=== PATIENT | male | born 1960 | race Asian ===

== ENCOUNTER 2017-02-05 10:01 | Emergency (ER) | payer MEDICAID, OTHER ==
[~2017-02-05] VITALS: Ht 167.6 cm; Wt 63.6 kg
[~2017-02-05 10:01] MED LIST: AMLO-511 PO; TELM1TAB6 PO
[2017-02-05 11:10] LABS: BASOPHILS % (AUTO) 0.5 % (0.0-2.0); EOSINOPHILS % (AUTO) 0.2 % (1.0-6.0); HEMATOCRIT 25.8 % (41-53); HEMOGLOBIN 8.8 g/dL (13.5-17.5); LYMPHOCYTES # (AUTO) 1.2 K/uL (1.0-4.8); LYMPHOCYTES % (AUTO) 12.1 % (22.0-44.0); MEAN CORPUSCULAR HEMOGLOBIN 33.2 pg (26.0-34.0); MEAN CORPUSCULAR HGB CONC 34.1 G/dL (31.0-37.0); MEAN CORPUSCULAR VOLUME 97 fL (80-100); MONOCYTES # (AUTO) 0.4 K/uL (0.1-1.0); MONOCYTES % (AUTO) 4.5 % (2.0-9.0); NEUTROPHILS % (AUTO) 82.7 % (40.0-70.0); PLATELET COUNT (AUTO) 220 K/uL (150-450); RED BLOOD CELL COUNT(AUTO) 2.65 MIL/uL (4.50-5.90); RED CELL DISTRIBUTION WIDTH 13.5 % (11.5-14.5); WHITE BLOOD COUNT (AUTO) 9.7 K/uL (4.5-11.0)
[2017-02-05 11:18] LABS: CALCIUM, TOTAL 8.6 mg/dL (8.8-10.5); CREATININE 13.97 mg/dL (0.60-1.30); POTASSIUM 4.2 mmol/L (3.5-5.1)
[2017-02-05 11:25] LABS: ALBUMIN 4.1 g/dL (3.4-5.0); BILIRUBIN,TOTAL 0.5 mg/dL (0.1-1.0); TOTAL PROTEIN, SERUM 7.8 g/dL (6.4-8.2)
[2017-02-05 12:26] LABS: GLUCOSE, URINE (UA) 100 mg/dL (NEGATIVE); KETONES,URINE NEGATIVE (NEGATIVE); LEUKOCYTE ESTERASE ,URINE NEGATIVE (NEGATIVE); OCCULT BLOOD,URINE TRACE (NEGATIVE); PROTEIN,URINE SEE CONFIRM (NEGATIVE)
[2017-02-05 12:27] LABS: ADD UA MICROSCOPIC YES
[2017-02-05 12:35] LABS: APPEARANCE,URINE SLIGHTLY CLOUDY (CLEAR)
[2017-02-05 12:36] LABS: SULFOSALICYLIC ACID,URINE 3+ (Negative)
[2017-02-05 12:38] LABS: RBC,URINE 0-2 /HPF (0-2); WBC,URINE 0-2 /HPF (0-5)
[2017-02-05 12:40] LABS: AMORPHOUS SEDIMENT,UR Moderate /LPF (None Seen); TRANSITIONAL EPI CELLS,URINE Rare /LPF (None Seen)
[2017-02-05 13:41] VITALS: BP 162/76
== END 2017-02-05 14:09 | disposition home or self-care (01) ==
LOC: EMS 10:04
DX: K56.41 Fecal impaction (principal); I12.9 Hypertensive chronic kidney disease with stage 1 through stage 4 chronic kidney disease, or unspecified chronic kidney disease; N18.9 Chronic kidney disease, unspecified; K59.00 Constipation, unspecified; D64.9 Anemia, unspecified; K85.90 Acute pancreatitis without necrosis or infection, unspecified; I25.10 Atherosclerotic heart disease of native coronary artery without angina pectoris
CPT/HCPCS: 82270; 82271; 93005; 99285

== ENCOUNTER 2017-02-16 20:22 | Emergency (ER) | payer OTHER ==
[~2017-02-16] VITALS: Ht 168.9 cm; Wt 63.6 kg
[2017-02-16 21:10] VITALS: BP 135/78
[2017-02-16] MEDS ORDERED: PROPARACAINE HCL 0.5% 15 ML OPHTHALMIC SOLUTION OU ONE (21:15)
[2017-02-16] MEDS ORDERED: ERYTHROMYCIN 0.5% 3.5 GM TUBE OPHTHALMIC OINTMENT OD ONE (21:30)
[2017-02-16] MEDS ORDERED: PERTUSS(ACELL),DIPH,TET VAC/PF 0.5 ML VIAL IM ONE (21:45)
== END 2017-02-16 21:57 | disposition home or self-care (01) ==
LOC: EMS 20:24
DX: H11.31 Conjunctival hemorrhage, right eye (principal); S05.31XA Ocular laceration without prolapse or loss of intraocular tissue, right eye, initial encounter; I25.10 Atherosclerotic heart disease of native coronary artery without angina pectoris; I10 Essential (primary) hypertension; Z79.899 Other long term (current) drug therapy; X58.XXXA Exposure to other specified factors, initial encounter; Y93.E8 Activity, other personal hygiene; Y92.89 Other specified places as the place of occurrence of the external cause; Y99.8 Other external cause status
CPT/HCPCS: 90471; 90715; 99283

== ENCOUNTER 2017-07-20 20:18 | Inpatient (IN) | payer OTHER ==
[~2017-07-20] VITALS: Ht 167.6 cm; Wt 66.9 kg
[~2017-07-20 20:18] MED LIST changes: -AMLO-511 PO; +BUME1TAB17 PO; +DILT-39 PO; +EPOE10IM SQ; +FERR-89 PO; +FOLI1CAP2 PO; +HYDR-2924 PO; +PANT40TA25 PO; +PHOSLOC PO; -TELM1TAB6 PO
[2017-07-20] MEDS ORDERED: HYDR-2924 PO (20:55)
[2017-07-20] MEDS ORDERED: ACETAMINOPHEN 500 MG TABLET ONE (21:19)
[2017-07-20] MEDS ORDERED: ACETAMINOPHEN 500 MG TABLET PO ONE (21:30)
[2017-07-20 21:31] LABS: APPEARANCE,URINE CLOUDY (CLEAR); BILIRUBIN,URINE NEGATIVE (NEGATIVE); GLUCOSE, URINE (UA) 250 mg/dL (NEGATIVE); KETONES,URINE NEGATIVE (NEGATIVE); LEUKOCYTE ESTERASE ,URINE MODERATE (NEGATIVE); NITRATE,URINE NEGATIVE (NEGATIVE); OCCULT BLOOD,URINE NEGATIVE (NEGATIVE); PROTEIN,URINE SEE CONFIRM (NEGATIVE); UROBILINOGEN,URINE 0.2 mg/dL (<=1.0)
[2017-07-20 21:35] LABS: INFLUENZA TYPE A NEGATIVE FOR TYPE A (NEGATIVE); INFLUENZA TYPE B NEGATIVE FOR TYPE B (NEGATIVE)
[2017-07-20 21:43] LABS: BACTERIA,URINE Rare /HPF (None Seen); RBC,URINE 0-2 /HPF (0-2); RENAL EPITHELIAL CELLS,URINE Rare /LPF (None Seen); SULFOSALICYLIC ACID,URINE 4+ (Negative)
[2017-07-20 21:44] LABS: BASOPHILS % (AUTO) 0.1 % (0.0-2.0); EOSINOPHILS % (AUTO) 0.4 % (1.0-6.0); HEMATOCRIT 31.9 % (41-53); HEMOGLOBIN 10.7 g/dL (13.5-17.5); LYMPHOCYTES # (AUTO) 1.1 K/uL (1.0-4.8); LYMPHOCYTES % (AUTO) 5.5 % (22.0-44.0); MEAN CORPUSCULAR HEMOGLOBIN 33.7 pg (26.0-34.0); MEAN CORPUSCULAR HGB CONC 33.5 G/dL (31.0-37.0); MEAN CORPUSCULAR VOLUME 101 fL (80-100); MONOCYTES # (AUTO) 1.7 K/uL (0.1-1.0); NEUTROPHILS # (AUTO) 18.1 K/uL (1.8-7.7); PLATELET COUNT (AUTO) 301 K/uL (150-450); RED BLOOD CELL COUNT(AUTO) 3.17 MIL/uL (4.50-5.90); RED CELL DISTRIBUTION WIDTH 14.7 % (11.5-14.5)
[2017-07-20 21:59] LABS: CALCIUM, TOTAL 9.1 mg/dL (8.8-10.5); CREATININE 5.6 mg/dL (0.60-1.30); POTASSIUM 4.2 mmol/L (3.5-5.1)
[2017-07-20 22:04] LABS: ALBUMIN 2.8 g/dL (3.4-5.0); BILIRUBIN,TOTAL 0.5 mg/dL (0.1-1.0); TOTAL PROTEIN, SERUM 8.2 g/dL (6.4-8.2)
[2017-07-20 22:13] LABS: PLATELET MORPHOLOGY COMMENT NORMAL
[2017-07-20 22:58] LABS: LACTIC ACID 1.2 mmol/L (0.4-2.0)
[2017-07-21] MEDS ORDERED: SODIUM CHLORIDE 0.9% 1,000 ML IV ONE ×2 (00:15)
[2017-07-21] MEDS ORDERED: AZITHROMYCIN 500 MG/NS 250 ML IV ONE ×2 (00:15→00:45)
[2017-07-21] MEDS ORDERED: CefTRIAXone 1 GM/DEXTROSE 50 ML IV ONE (00:15)
[2017-07-21] MEDS ORDERED: PIPERACILLIN/TAZO 3.375 GM/D5W 50 ML IV ONE (00:30)
[2017-07-21] MEDS ORDERED: ONDANSETRON HCL 4 MG/2 ML VIAL IVP PRN (00:30)
[2017-07-21] MEDS ORDERED: VANCOMYCIN HCL 1 GM/D5% WATER 200 ML IV ONE (00:30)
[2017-07-21] MEDS ORDERED: ACETAMINOPHEN 325 MG TABLET PO PRN ×2 (00:30→22:45)
[2017-07-21] MEDS ORDERED: 0.9% SODIUM CHLORIDE 10 ML SYRINGE IVP PRN (00:30)
[2017-07-21 09:13] VITALS: BP 131/77
[2017-07-21] MEDS ORDERED: CEFEPIME HCL 1 GM in DEXTROSE 5%-WATER 50 ML IV ONE (11:00)
[2017-07-21] MEDS ORDERED: VANCOMYCIN HCL 1 GM/D5% WATER 200 ML IV PRN (11:15)
[2017-07-21] MEDS: DILTIAZEM HCL CD 120 MG ER CAPSULE PO SCH (11:24)
[2017-07-21] MEDS: LEVOFLOXACIN 500 MG/D5% WATER 100 ML IV SCH (11:24)
[2017-07-21] MEDS: FERROUS SULFATE 325 MG EC TABLET PO SCH (11:24)
[2017-07-21] MEDS: CALCIUM ACETATE 667 MG CAPSULE PO SCH ×2 (11:24→18:02)
[2017-07-21 11:44] VITALS: BP 113/68
[2017-07-21 14:42] VITALS: BP 134/78
[2017-07-21] MEDS: HydrALAZINE HCL 50 MG TABLET PO SCH ×2 (15:24→19:44)
[2017-07-21 19:16] VITALS: BP 126/73
[2017-07-21 23:29] VITALS: BP 120/69
[2017-07-21] MEDS: PIPERACILLIN SODIUM/TAZOBACTAM 2.25 GM in DEXTROSE 5%-WATER 50 ML IV SCH (23:40)
[2017-07-22 04:51] VITALS: BP 122/73
[2017-07-22] MEDS: FAMOTIDINE 20 MG TABLET PO SCH (06:11)
[2017-07-22] MEDS: PIPERACILLIN SODIUM/TAZOBACTAM 2.25 GM in DEXTROSE 5%-WATER 50 ML IV SCH ×3 (06:39→23:15)
[2017-07-22 07:37] LABS: BASOPHILS % (AUTO) 0.5 % (0.0-2.0); EOSINOPHILS % (AUTO) 1.3 % (1.0-6.0); HEMATOCRIT 28.2 % (41-53); HEMOGLOBIN 9.4 g/dL (13.5-17.5); LYMPHOCYTES # (AUTO) 1.5 K/uL (1.0-4.8); LYMPHOCYTES % (AUTO) 9.5 % (22.0-44.0); MEAN CORPUSCULAR HEMOGLOBIN 33.9 pg (26.0-34.0); MEAN CORPUSCULAR HGB CONC 33.3 G/dL (31.0-37.0); MEAN CORPUSCULAR VOLUME 102 fL (80-100); MONOCYTES # (AUTO) 1.4 K/uL (0.1-1.0); NEUTROPHILS # (AUTO) 12.6 K/uL (1.8-7.7); NEUTROPHILS % (AUTO) 79.7 % (40.0-70.0); PLATELET COUNT (AUTO) 305 K/uL (150-450); RED BLOOD CELL COUNT(AUTO) 2.77 MIL/uL (4.50-5.90); RED CELL DISTRIBUTION WIDTH 15.1 % (11.5-14.5)
[2017-07-22 08:05] LABS: BILIRUBIN,TOTAL 0.5 mg/dL (0.1-1.0); CALCIUM, TOTAL 8.4 mg/dL (8.8-10.5); CREATININE 9.31 mg/dL (0.60-1.30); POTASSIUM 4.6 mmol/L (3.5-5.1); TOTAL PROTEIN, SERUM 6.8 g/dL (6.4-8.2); VANCOMYCIN,RANDOM 22.9 mcg/mL (25.0-50.0)
[2017-07-22 08:17] VITALS: BP 124/76
[2017-07-22] MEDS: HydrALAZINE HCL 50 MG TABLET PO SCH ×3 (08:27→20:46)
[2017-07-22] MEDS: CALCIUM ACETATE 667 MG CAPSULE PO SCH ×3 (08:27→17:18)
[2017-07-22] MEDS: FERROUS SULFATE 325 MG EC TABLET PO SCH (08:27)
[2017-07-22] MEDS: -POST HEMODIALYSIS NOTE- MISC SCH (09:00)
[2017-07-22] MEDS: DILTIAZEM HCL CD 120 MG ER CAPSULE PO SCH (09:58)
[2017-07-22 11:16] VITALS: BP 109/71
[2017-07-22] MEDS ORDERED: VANCOMYCIN HCL 750 MG in DEXTROSE 5%-WATER 150 ML IV PRN (13:30)
[2017-07-22] MEDS: VITAMIN B COMP/VIT C/FOLIC ACID CAPSULE PO SCH (15:15)
[2017-07-22 16:11] VITALS: BP 129/77
[2017-07-22 19:41] VITALS: BP 116/77
[2017-07-22 23:45] VITALS: BP 129/77
[2017-07-23 05:28] VITALS: BP 122/72
[2017-07-23] MEDS: PIPERACILLIN SODIUM/TAZOBACTAM 2.25 GM in DEXTROSE 5%-WATER 50 ML IV SCH ×3 (06:41→23:55)
[2017-07-23] MEDS: FAMOTIDINE 20 MG TABLET PO SCH (06:41)
[2017-07-23 07:22] VITALS: BP 120/75
[2017-07-23] MEDS ORDERED: SODIUM CHLORIDE 0.9% 2,000 ML IV ONE (08:30)
[2017-07-23] MEDS: CALCIUM ACETATE 667 MG CAPSULE PO SCH ×3 (08:34→17:39)
[2017-07-23] MEDS ORDERED: LIDOCAINE HCL/PF 1% 2 ML VIAL INJ ONE (12:00)
[2017-07-23 12:30] VITALS: BP 121/72
[2017-07-23] MEDS: FERROUS SULFATE 325 MG EC TABLET PO SCH (12:39)
[2017-07-23] MEDS: DILTIAZEM HCL CD 120 MG ER CAPSULE PO SCH (12:39)
[2017-07-23] MEDS: VITAMIN B COMP/VIT C/FOLIC ACID CAPSULE PO SCH (12:39)
[2017-07-23] MEDS: EPOETIN ALFA 10,000 UNITS/ML 2 ML VIAL SQ SCH (12:39)
[2017-07-23] MEDS: HydrALAZINE HCL 50 MG TABLET PO SCH ×3 (12:40→20:07)
[2017-07-23] MEDS: -HEMODIALYSIS NOTE- MISC SCH (12:40)
[2017-07-23] MEDS: LEVOFLOXACIN 500 MG/D5% WATER 100 ML IV SCH (14:44)
[2017-07-23 15:43] VITALS: BP 123/73
[2017-07-23 16:49] VITALS: BP 120/64
[2017-07-23 18:09] LABS: INR 1.2 (0.9-1.1); PROTHROMBIN TIME 12.3 SEC (9.4-11.6)
[2017-07-23 19:49] VITALS: BP 116/69
[2017-07-23] MEDS: PIPERACILLIN SODIUM/TAZOBACTAM 0.75 GM in DEXTROSE 5%-WATER 50 ML IV PRN ×2 (23:51→23:52)
[2017-07-24 00:01] VITALS: BP 130/70
[2017-07-24 05:18] VITALS: BP 120/80
[2017-07-24] MEDS: FAMOTIDINE 20 MG TABLET PO SCH (06:07)
[2017-07-24] MEDS: PIPERACILLIN SODIUM/TAZOBACTAM 2.25 GM in DEXTROSE 5%-WATER 50 ML IV SCH ×2 (06:07→14:51)
[2017-07-24 06:30] LABS: BASOPHILS # (AUTO) 0.05 K/uL (0.00-0.20); BASOPHILS % (AUTO) 0.3 % (0.0-2.0); EOSINOPHILS % (AUTO) 2.78 % (1.0-6.0); HEMATOCRIT 29.8 % (41-53); HEMOGLOBIN 9.6 g/dL (13.5-17.5); LYMPHOCYTES % (AUTO) 13.7 % (22.0-44.0); MEAN CORPUSCULAR HEMOGLOBIN 33.5 pg (26.0-34.0); MEAN CORPUSCULAR HGB CONC 32.4 G/dL (31.0-37.0); MEAN CORPUSCULAR VOLUME 103 fL (80-100); MONOCYTES # (AUTO) 1.1 K/uL (0.1-1.0); MONOCYTES % (AUTO) 7.3 % (2.0-9.0); NEUTROPHILS % (AUTO) 75.9 % (40.0-70.0); PLATELET COUNT (AUTO) 424 K/uL (150-450); RED BLOOD CELL COUNT(AUTO) 2.88 MIL/uL (4.50-5.90); RED CELL DISTRIBUTION WIDTH 15.1 % (11.5-14.5)
[2017-07-24 06:53] LABS: CREATININE 8.13 mg/dL (0.60-1.30); POTASSIUM 4.4 mmol/L (3.5-5.1)
[2017-07-24 07:22] VITALS: BP 124/75
[2017-07-24] MEDS: CALCIUM ACETATE 667 MG CAPSULE PO SCH ×3 (08:00→17:59)
[2017-07-24 08:49] LABS: MAGNESIUM 1.8 mg/dL (1.80-2.40); PHOSPHORUS 4.9 mg/dL (2.5-4.9)
[2017-07-24] MEDS: -POST HEMODIALYSIS NOTE- MISC SCH (09:00)
[2017-07-24] MEDS: HydrALAZINE HCL 50 MG TABLET PO SCH ×3 (09:00→20:33)
[2017-07-24] MEDS: -HEMODIALYSIS NOTE- MISC SCH (09:00)
[2017-07-24] MEDS ORDERED: MIDAZOLAM HCL 2 MG/2 ML VIAL ONE (11:31)
[2017-07-24] MEDS ORDERED: FentaNYL CITRATE-PF 100 MCG/2 ML VIAL ONE (11:31)
[2017-07-24] MEDS ORDERED: FentaNYL CITRATE-PF 100 MCG/2 ML VIAL IVP ONE (12:10)
[2017-07-24] MEDS ORDERED: MIDAZOLAM HCL 2 MG/2 ML VIAL IVP ONE (12:10)
[2017-07-24] MEDS: VITAMIN B COMP/VIT C/FOLIC ACID CAPSULE PO SCH (14:46)
[2017-07-24] MEDS: FERROUS SULFATE 325 MG EC TABLET PO SCH (14:46)
[2017-07-24] MEDS: DILTIAZEM HCL CD 120 MG ER CAPSULE PO SCH (14:46)
[2017-07-24 15:29] VITALS: BP 119/77
[2017-07-24 19:39] VITALS: BP 128/66
[2017-07-25 00:02] VITALS: BP 127/78
[2017-07-25] MEDS: NAFCILLIN SODIUM 2 GM in DEXTROSE 5%-WATER 100 ML IV SCH ×6 (00:21→20:06)
[2017-07-25 04:13] VITALS: BP 135/77
[2017-07-25] MEDS: FAMOTIDINE 20 MG TABLET PO SCH (06:11)
[2017-07-25 07:47] VITALS: BP 132/87
[2017-07-25] MEDS: CALCIUM ACETATE 667 MG CAPSULE PO SCH ×3 (08:00→18:05)
[2017-07-25] MEDS: HydrALAZINE HCL 50 MG TABLET PO SCH ×3 (09:00→20:07)
[2017-07-25 11:15] VITALS: BP 121/77
[2017-07-25] MEDS: VITAMIN B COMP/VIT C/FOLIC ACID CAPSULE PO SCH (11:48)
[2017-07-25] MEDS: DILTIAZEM HCL CD 120 MG ER CAPSULE PO SCH (11:48)
[2017-07-25] MEDS: EPOETIN ALFA 10,000 UNITS/ML 2 ML VIAL SQ SCH (11:48)
[2017-07-25] MEDS: FERROUS SULFATE 325 MG EC TABLET PO SCH (11:48)
[2017-07-25] MEDS ORDERED: INDIUM IN-111 OXYQUINOLINE/.5MCL ISOTOPE 1 EA INJ INJ ONE (12:50)
[2017-07-25 15:59] VITALS: BP 116/76
[2017-07-25] MEDS ORDERED: SODIUM CHLORIDE 0.9% 500 ML IV ONE (16:40)
[2017-07-25] MEDS ORDERED: LIDOCAINE HCL/PF 1% 2 ML VIAL IARTIC ONE (16:45)
[2017-07-25 20:07] VITALS: BP 114/70
[2017-07-26] VITALS (7 sets, daily range): BP systolic 118–132; BP diastolic 73–84
[2017-07-26] MEDS: NAFCILLIN SODIUM 2 GM in DEXTROSE 5%-WATER 100 ML IV SCH ×6 (00:01→20:37)
[2017-07-26] MEDS: FAMOTIDINE 20 MG TABLET PO SCH (06:20)
[2017-07-26 07:54] LABS: BASOPHILS % (AUTO) 0.7 % (0.0-2.0); HEMATOCRIT 29.6 % (41-53); HEMOGLOBIN 9.8 g/dL (13.5-17.5); LYMPHOCYTES # (AUTO) 1.6 K/uL (1.0-4.8); LYMPHOCYTES % (AUTO) 15.1 % (22.0-44.0); MEAN CORPUSCULAR HGB CONC 33.2 G/dL (31.0-37.0); MEAN CORPUSCULAR VOLUME 103 fL (80-100); MONOCYTES # (AUTO) 0.9 K/uL (0.1-1.0); MONOCYTES % (AUTO) 8.6 % (2.0-9.0); NEUTROPHILS # (AUTO) 7.7 K/uL (1.8-7.7); NEUTROPHILS % (AUTO) 71.6 % (40.0-70.0); PLATELET COUNT (AUTO) 465 K/uL (150-450); RED BLOOD CELL COUNT(AUTO) 2.89 MIL/uL (4.50-5.90); RED CELL DISTRIBUTION WIDTH 15.2 % (11.5-14.5)
[2017-07-26] MEDS: CALCIUM ACETATE 667 MG CAPSULE PO SCH ×3 (08:04→18:16)
[2017-07-26] MEDS: DILTIAZEM HCL CD 120 MG ER CAPSULE PO SCH (08:04)
[2017-07-26] MEDS: FERROUS SULFATE 325 MG EC TABLET PO SCH (08:04)
[2017-07-26] MEDS: VITAMIN B COMP/VIT C/FOLIC ACID CAPSULE PO SCH (08:04)
[2017-07-26] MEDS: HydrALAZINE HCL 50 MG TABLET PO SCH ×3 (08:04→22:12)
[2017-07-26 08:23] LABS: CALCIUM, TOTAL 8.5 mg/dL (8.8-10.5); CREATININE 8.8 mg/dL (0.60-1.30); MAGNESIUM 1.9 mg/dL (1.80-2.40); PHOSPHORUS 6.7 mg/dL (2.5-4.9); POTASSIUM 4.6 mmol/L (3.5-5.1)
[2017-07-27] MEDS: NAFCILLIN SODIUM 2 GM in DEXTROSE 5%-WATER 100 ML IV SCH ×6 (00:34→20:47)
[2017-07-27] MEDS: FAMOTIDINE 20 MG TABLET PO SCH (05:35)
[2017-07-27 06:09] LABS: BASOPHILS % (AUTO) 0.4 % (0.0-2.0); EOSINOPHILS % (AUTO) 5.4 % (1.0-6.0); HEMATOCRIT 26.9 % (41-53); LYMPHOCYTES # (AUTO) 1.7 K/uL (1.0-4.8); LYMPHOCYTES % (AUTO) 15.4 % (22.0-44.0); MEAN CORPUSCULAR HEMOGLOBIN 34.2 pg (26.0-34.0); MEAN CORPUSCULAR HGB CONC 33.5 G/dL (31.0-37.0); MEAN CORPUSCULAR VOLUME 102 fL (80-100); MONOCYTES # (AUTO) 0.8 K/uL (0.1-1.0); MONOCYTES % (AUTO) 7.3 % (2.0-9.0); NEUTROPHILS # (AUTO) 7.7 K/uL (1.8-7.7); NEUTROPHILS % (AUTO) 71.5 % (40.0-70.0); PLATELET COUNT (AUTO) 501 K/uL (150-450); RED BLOOD CELL COUNT(AUTO) 2.64 MIL/uL (4.50-5.90); RED CELL DISTRIBUTION WIDTH 15.3 % (11.5-14.5)
[2017-07-27 06:45] LABS: CALCIUM, TOTAL 8.5 mg/dL (8.8-10.5); CREATININE 11.46 mg/dL (0.60-1.30); POTASSIUM 4.6 mmol/L (3.5-5.1)
[2017-07-27 06:54] VITALS: BP 123/84
[2017-07-27 08:42] VITALS: BP 149/80
[2017-07-27] MEDS: FERROUS SULFATE 325 MG EC TABLET PO SCH (09:00)
[2017-07-27] MEDS: CALCIUM ACETATE 667 MG CAPSULE PO SCH ×2 (09:00→14:44)
[2017-07-27] MEDS: VITAMIN B COMP/VIT C/FOLIC ACID CAPSULE PO SCH (09:04)
[2017-07-27] MEDS: EPOETIN ALFA 10,000 UNITS/ML 2 ML VIAL SQ SCH (09:04)
[2017-07-27] MEDS: DILTIAZEM HCL CD 120 MG ER CAPSULE PO SCH (09:06)
[2017-07-27] MEDS: HydrALAZINE HCL 50 MG TABLET PO SCH ×3 (09:06→20:47)
[2017-07-27] MEDS ORDERED: SODIUM CHLORIDE 0.9% 2,000 ML IV ONE (10:42)
[2017-07-27] MEDS ORDERED: CeFAZolin 2 GM/DEXTROSE 50 ML IV PRN (13:00)
[2017-07-27 15:00] VITALS: BP 118/72
[2017-07-27] MEDS ORDERED: LIDOCAINE HCL/PF 1% 2 ML VIAL IM ONE (17:09)
[2017-07-27 21:15] VITALS: BP 110/74
[2017-07-28 00:25] VITALS: BP 112/81
[2017-07-28] MEDS: FAMOTIDINE 20 MG TABLET PO SCH (05:35)
[2017-07-28 06:38] LABS: BASOPHILS % (AUTO) 0.6 % (0.0-2.0); EOSINOPHILS % (AUTO) 4.9 % (1.0-6.0); HEMATOCRIT 26.8 % (41-53); LYMPHOCYTES # (AUTO) 1.8 K/uL (1.0-4.8); MEAN CORPUSCULAR HEMOGLOBIN 33.9 pg (26.0-34.0); MEAN CORPUSCULAR HGB CONC 33.4 G/dL (31.0-37.0); MEAN CORPUSCULAR VOLUME 102 fL (80-100); MONOCYTES # (AUTO) 0.9 K/uL (0.1-1.0); MONOCYTES % (AUTO) 8.4 % (2.0-9.0); NEUTROPHILS # (AUTO) 7.5 K/uL (1.8-7.7); NEUTROPHILS % (AUTO) 69.1 % (40.0-70.0); PLATELET COUNT (AUTO) 511 K/uL (150-450); RED BLOOD CELL COUNT(AUTO) 2.64 MIL/uL (4.50-5.90); RED CELL DISTRIBUTION WIDTH 15.2 % (11.5-14.5)
[2017-07-28 07:04] LABS: CALCIUM, TOTAL 8.5 mg/dL (8.8-10.5); CREATININE 8.35 mg/dL (0.60-1.30); POTASSIUM 4.2 mmol/L (3.5-5.1)
[2017-07-28 07:11] VITALS: BP 108/70
[2017-07-28] MEDS: DILTIAZEM HCL CD 120 MG ER CAPSULE PO SCH (08:35)
[2017-07-28] MEDS: VITAMIN B COMP/VIT C/FOLIC ACID CAPSULE PO SCH (08:35)
[2017-07-28] MEDS: HydrALAZINE HCL 50 MG TABLET PO SCH ×2 (08:36→16:24)
[2017-07-28] MEDS: FERROUS SULFATE 325 MG EC TABLET PO SCH (08:42)
[2017-07-28] MEDS: CALCIUM ACETATE 667 MG CAPSULE PO SCH ×2 (08:43→12:19)
[2017-07-28 08:48] VITALS: BP 137/78
[2017-07-28] MEDS ORDERED: FAMO20 PO (11:06)
[2017-07-28] MEDS ORDERED: FOLI1CAP2 PO (11:07)
[2017-07-28] MEDS ORDERED: CEFA2PIG7 IV (11:24)
[2017-07-28] MEDS ORDERED: [UNRECOGNIZED DRUG - REMARK] MISC SCH (12:33)
[2017-07-28 13:22] VITALS: BP 136/82
[2017-07-28 16:31] VITALS: BP 144/78
[2017-07-30] MEDS ORDERED: EPOETIN ALFA 10,000 UNITS/ML 2 ML VIAL SQ SCH (09:00)
[2017-07-30] MEDS ORDERED: EPOETIN ALFA 10,000 UNITS/ML VIAL SQ SCH (09:00)
== END 2017-07-28 17:12 | disposition home or self-care (01) | DRG 720 ==
LOC: EMS 20:19 → 5N 07-21 05:23 → 4E 07-26 10:35
PROVIDERS: ADMIT Hospitalist; ATTEND Hospitalist
PROC: 0BBK3ZX Excision of Right Lung, Percutaneous Approach, Diagnostic (ICD-10-PCS; principal; 2017-07-24)
DX: A41.9 Sepsis, unspecified organism (principal); I76 Septic arterial embolism; N18.6 End stage renal disease; J18.9 Pneumonia, unspecified organism; I12.0 Hypertensive chronic kidney disease with stage 5 chronic kidney disease or end stage renal disease; I13.11 Hypertensive heart and chronic kidney disease without heart failure, with stage 5 chronic kidney disease, or end stage renal disease; M54.9 Dorsalgia, unspecified; B95.61 Methicillin susceptible Staphylococcus aureus infection as the cause of diseases classified elsewhere; I25.10 Atherosclerotic heart disease of native coronary artery without angina pectoris; Z99.2 Dependence on renal dialysis; Z90.49 Acquired absence of other specified parts of digestive tract; Z87.891 Personal history of nicotine dependence
CPT/HCPCS: 32405; 71250; 76881; 78806; 83605; 83735; 84100; 87015; 87040; 87070; 87081; 87086; 87101; 87176; 87205; 87340; 87804; 88305; 88312; 88313; 88341; 88342; 90935; 93005; 93306; 96361; 96365; 96366; 96367; 99291; A9547; J0456; J0690; J0692; J0696; J0885; J1956; J2250; J2543; J3010; J3370; J3490; J7030; J7040; J7060

== ENCOUNTER 2022-10-21 16:05 | Inpatient (IN) | payer OTHER ==
[~2022-10-21] VITALS: Ht 154.9 cm; Wt 75.0 kg
[~2022-10-21 16:05] MED LIST changes: -BUME1TAB17 PO; +CEFA2PIG7 IV; -EPOE10IM SQ; +FAMO20 PO; -FERR-89 PO; +FERR325T27 PO; -HYDR-2924 PO; +HYDR50TA36 PO; -PANT40TA25 PO
[2022-10-21 17:19] LABS: BASOPHILS % (AUTO) 0.9 % (0.0-2.0); EOSINOPHILS % (AUTO) 0.9 % (1.0-6.0); HEMATOCRIT 34.2 % (41-53); LYMPHOCYTES # (AUTO) 0.7 K/uL (1.0-4.8); LYMPHOCYTES % (AUTO) 6.7 % (22.0-44.0); MEAN CORPUSCULAR HEMOGLOBIN 31.1 pg (26.0-34.0); MEAN CORPUSCULAR HGB CONC 32.3 G/dL (31.0-37.0); MEAN CORPUSCULAR VOLUME 96 fL (80-100); MONOCYTES # (AUTO) 0.8 K/uL (0.1-1.0); MONOCYTES % (AUTO) 8.6 % (2.0-9.0); NEUTROPHILS # (AUTO) 8.1 K/uL (1.8-7.7); NEUTROPHILS % (AUTO) 82.9 % (40.0-70.0); PLATELET COUNT (AUTO) 257 K/uL (150-450); RED BLOOD CELL COUNT(AUTO) 3.56 MIL/uL (4.50-5.90); RED CELL DISTRIBUTION WIDTH 16.8 % (11.5-14.5)
[2022-10-21] MEDS ORDERED: NITROGLYCERIN 2% (1 GM=INCH) OINTMENT PACKET TP ONE (17:30)
[2022-10-21 17:33] LABS: CALCIUM, TOTAL 9.3 mg/dL (8.8-10.5); CREATININE 9.48 mg/dL (0.60-1.30); POTASSIUM 3.9 mmol/L (3.5-5.1)
[2022-10-21 17:39] LABS: ALBUMIN 3.3 g/dL (3.4-5.0); BILIRUBIN,TOTAL 0.6 mg/dL (0.1-1.0); TOTAL PROTEIN, SERUM 7.4 g/dL (6.4-8.2)
[2022-10-21 18:10] LABS: PROTHROMBIN TIME 11.1 SEC (9.4-11.6)
[2022-10-21 18:32] LABS: COVID AG,FIA SOURCE NASOPHARYNGEAL
[2022-10-21 18:52] LABS: INFLUENZA TYPE A NEGATIVE FOR TYPE A (NEGATIVE); INFLUENZA TYPE B NEGATIVE FOR TYPE B (NEGATIVE)
[2022-10-22] VITALS (16 sets, daily range): BP systolic 101–163; BP diastolic 63–105
[2022-10-22] MEDS ORDERED: HEPARIN SODIUM,PORCINE 1,000 UNITS/ML VIAL IVCATH ONE ×2 (05:45)
[2022-10-22] MEDS ORDERED: ONDANSETRON HCL 4 MG/2 ML VIAL IVP PRN (06:00)
[2022-10-22] MEDS ORDERED: ACETAMINOPHEN 325 MG TABLET PO PRN (06:00)
[2022-10-22] MEDS ORDERED: DEXTROSE 50%-WATER 25 GM/50 ML SYRINGE IVP PRN (06:15)
[2022-10-22] MEDS ORDERED: INSULIN LISPRO 100 UNITS/ML SQ PRN (06:15)
[2022-10-22] MEDS: GuaiFENesin/D-METHORPHAN [SUGAR-FREE] 200-20MG/10 ML SYRUP UDCUP PO PRN ×2 (18:11→21:51)
[2022-10-22] MEDS ORDERED: HYDR50TA36 PO (19:21)
[2022-10-22] MEDS ORDERED: DILT30TA4 PO (19:21)
[2022-10-22 20:46] LABS: GLUCOMETER DEV NAME(LOC) 5N.2C; GLUCOSE,POINT OF CARE 104 MG/DL (70-110)
[2022-10-22 21:06] LABS: GLUCOMETER DEV NAME(LOC) 5N.2C; GLUCOSE,POINT OF CARE 147 MG/DL (70-110)
[2022-10-23] VITALS (14 sets, daily range): BP systolic 122–155; BP diastolic 80–100
[2022-10-23] MEDS: GuaiFENesin/D-METHORPHAN [SUGAR-FREE] 200-20MG/10 ML SYRUP UDCUP PO PRN ×2 (03:31→09:20)
[2022-10-23 06:06] LABS: GLUCOMETER DEV NAME(LOC) 5S.1B; GLUCOSE,POINT OF CARE 111 MG/DL (70-110)
[2022-10-23 07:08] LABS: BASOPHILS % (AUTO) 0.6 % (0.0-2.0); EOSINOPHILS % (AUTO) 2.4 % (1.0-6.0); HEMATOCRIT 34.9 % (41-53); HEMOGLOBIN 11.5 g/dL (13.5-17.5); LYMPHOCYTES # (AUTO) 1.2 K/uL (1.0-4.8); LYMPHOCYTES % (AUTO) 11.9 % (22.0-44.0); MEAN CORPUSCULAR HEMOGLOBIN 31.6 pg (26.0-34.0); MEAN CORPUSCULAR HGB CONC 32.9 G/dL (31.0-37.0); MEAN CORPUSCULAR VOLUME 96 fL (80-100); MONOCYTES # (AUTO) 1.1 K/uL (0.1-1.0); MONOCYTES % (AUTO) 11.1 % (2.0-9.0); NEUTROPHILS # (AUTO) 7.1 K/uL (1.8-7.7); PLATELET COUNT (AUTO) 284 K/uL (150-450); RED BLOOD CELL COUNT(AUTO) 3.64 MIL/uL (4.50-5.90); RED CELL DISTRIBUTION WIDTH 16.7 % (11.5-14.5)
[2022-10-23 07:14] LABS: CALCIUM, TOTAL 9.4 mg/dL (8.8-10.5); CREATININE 8.78 mg/dL (0.60-1.30); MAGNESIUM 2.7 mg/dL (1.80-2.40); POTASSIUM 4.5 mmol/L (3.5-5.1)
[2022-10-23] MEDS ORDERED: SODIUM CHLORIDE 0.9% 2,000 ML ONE (09:40)
[2022-10-23] MEDS ORDERED: GUAIFDM PO (14:43)
[2022-10-23] MEDS ORDERED: LEVO250T75 PO (14:43)
[2022-10-23] MEDS ORDERED: LEVOFLOXACIN 750 MG TABLET PO ONE (14:45)
[2022-10-23] MEDS ORDERED: HEPARIN SODIUM,PORCINE 1,000 UNITS/ML VIAL IVP ONE ×2 (15:59)
[2022-10-24 02:40] LABS: GLUCOMETER DEV NAME(LOC) 5S.1B; GLUCOSE,POINT OF CARE 83 MG/DL (70-110)
== END 2022-10-23 16:00 | disposition home or self-care (01) | DRG 133 ==
LOC: EMS 16:07 → 5N 10-22 00:38 → UNDOADMIN 10-22 00:38 → 5N 10-22 01:34
PROVIDERS: ADMIT Internal Medicine; ATTEND Internal Medicine
PROC: 5A1D70Z Performance of Urinary Filtration, Intermittent, Less than 6 Hours Per Day (ICD-10-PCS; principal; 2022-10-21)
DX: J96.01 Acute respiratory failure with hypoxia (principal); I13.2 Hypertensive heart and chronic kidney disease with heart failure and with stage 5 chronic kidney disease, or end stage renal disease; J18.9 Pneumonia, unspecified organism; N18.6 End stage renal disease; D63.1 Anemia in chronic kidney disease; E11.22 Type 2 diabetes mellitus with diabetic chronic kidney disease; I50.9 Heart failure, unspecified; J04.0 Acute laryngitis; I25.10 Atherosclerotic heart disease of native coronary artery without angina pectoris; Z20.822 Contact with and (suspected) exposure to COVID-19; Z82.49 Family history of ischemic heart disease and other diseases of the circulatory system; Z83.3 Family history of diabetes mellitus
CPT/HCPCS: 71045; 71250; 80048; 80053; 82550; 82962; 83735; 83880; 84484; 85025; 85610; 85730; 87081; 87340; 87804; 90935; 93005; 93306; 99291; J1644; J7030; Q9967; 36415-L1; 36415-TC

== ENCOUNTER 2024-07-12 19:53 | Emergency (ER) | payer OTHER ==
[~2024-07-12] VITALS: Ht 167.6 cm; Wt 68.2 kg
[~2024-07-12 19:53] MED LIST changes: +ASPI81 PO; -CEFA2PIG7 IV; +CLOP75TA60 PO; -DILT-39 PO; -FAMO20 PO; -FERR325T27 PO; -FOLI1CAP2 PO; -PHOSLOC PO; +ROSU20TA98 PO; +SEVE800T38 PO
[2024-07-12 22:38] LABS: BASOPHILS % (AUTO) 1.2 % (0.0-2.0); HEMATOCRIT 33.3 % (41-53); HEMOGLOBIN 10.8 g/dL (13.5-17.5); LYMPHOCYTES # (AUTO) 1.4 K/uL (1.0-4.8); LYMPHOCYTES % (AUTO) 12.6 % (22.0-44.0); MEAN CORPUSCULAR HEMOGLOBIN 33.7 pg (26.0-34.0); MEAN CORPUSCULAR HGB CONC 32.5 G/dL (31.0-37.0); MEAN CORPUSCULAR VOLUME 104 fL (80-100); MONOCYTES # (AUTO) 0.8 K/uL (0.1-1.0); MONOCYTES % (AUTO) 7.3 % (2.0-9.0); NEUTROPHILS # (AUTO) 6.9 K/uL (1.8-7.7); NEUTROPHILS % (AUTO) 62.8 % (40.0-70.0); PLATELET COUNT (AUTO) 317 K/uL (150-450); WHITE BLOOD COUNT (AUTO) 10.9 K/uL (4.5-11.0)
[2024-07-12 22:39] LABS: EOSINOPHILS % (AUTO) 16.1 % (1.0-6.0)
[2024-07-12 22:46] LABS: CALCIUM, TOTAL 8.9 mg/dL (8.8-10.5); CREATININE 9.23 mg/dL (0.60-1.30); POTASSIUM 4.9 mmol/L (3.5-5.1)
[2024-07-12 22:54] LABS: RBC MORPHOLOGY COMMENT ABNORMAL RBC MORPH
[2024-07-12] MEDS ORDERED: ONDANSETRON HCL 4 MG/2 ML VIAL IVP PRN (23:45)
[2024-07-12] MEDS ORDERED: DEXTROSE 50%-WATER 25 GM/50 ML SYRINGE IVP PRN (23:45)
[2024-07-12] MEDS ORDERED: BISACODYL 10 MG RECTAL RECTAL SUPPOSITORY PR PRN (23:45)
[2024-07-12] MEDS ORDERED: HydrALAZINE HCL 20 MG/ML VIAL IVP PRN (23:45)
[2024-07-12] MEDS ORDERED: INSULIN LISPRO 100 UNITS/ML SQ PRN (23:45)
[2024-07-12] MEDS ORDERED: MORPHINE SULFATE 2 MG/ML SYRINGE IVP PRN (23:45)
[2024-07-13] VITALS (8 sets, daily range): PULSE 49–109; RESP 18–21; O2SAT 99–100
[2024-07-13] MEDS: HEPARIN SODIUM,PORCINE 5,000 UNITS/ML VIAL SQ SCH
[2024-07-13] MEDS: PANTOPRAZOLE SODIUM 40 MG/VIAL IVP SCH (00:29)
[2024-07-13] MEDS: DEXAMETHASONE SOD PHOS 4 MG/ML 5 ML VIAL IVP ONE (01:42)
[2024-07-13] MEDS ORDERED: DEXAMETHASONE SOD PHOS 10 MG/ML VIAL IVP ONE (01:45)
[2024-07-13] MEDS: HydrALAZINE HCL 20 MG/ML VIAL IVP ONE (03:12)
[2024-07-13 03:38] LABS: ABG BASE EXCESS 1.3 mmol/L (-2.0-3.0); ABG CARBOXYHEMOGLOBIN 0.5 % (0.5-1.5); ABG HCO3 24.8 mmol/L (21.0-28.0); ABG OXYGEN CONTENT 18.6 mL/dL (15.0-23.0); ABG OXYGEN SATURATION 99.7 % (94.0-98.0); ABG OXYHEMOGLOBIN 98.2 % (94.0-98.0); ABG PCO2 57 mmHg (32.0-48.0); ABG PH 7.302 (7.350-7.450); ABG TOTAL HEMOGLOBIN 12.8 G/dL (13.5-17.5); SOURCE, BLOOD GAS ARTERIAL; TEMPERATURE, FAHRENHEIT, BG 98.7 FAHREN (96.0-98.6)
[2024-07-13 04:01] LABS: ALLEN TEST, BLOOD GAS Positive; O2 DEVICE,BLOOD GAS VENT (ROOM AIR); PEEP,BG 5 cm H2O; PO2, ARTERIAL BG 348.6 mmHg (83.0-108.0); SITE, BLOOD GAS RT RADIAL; VT, ABG 420 ml
[2024-07-13] MEDS: ROCURONIUM BROMIDE 10 MG/ML 5 ML VIAL IVP ONE (04:23)
[2024-07-13] MEDS ORDERED: SODIUM CHLORIDE 0.9% 500 ML IV ONE (04:42)
[2024-07-13] MEDS: SODIUM CHLORIDE 0.9% 500 ML IV ONE (04:47)
[2024-07-13] MEDS: PHENYLEPHRINE 200 MG/D5%-WATER 250 ML IV PRN (04:49)
[2024-07-13 05:14] LABS: ABG BASE EXCESS -2.2 mmol/L (-2.0-3.0); ABG CARBOXYHEMOGLOBIN 0.3 % (0.5-1.5); ABG HCO3 22.7 mmol/L (21.0-28.0); ABG METHEMOGLOBIN 1.2 % (0.0-1.5); ABG OXYGEN CONTENT 14.8 mL/dL (15.0-23.0); ABG OXYGEN SATURATION 99.5 % (94.0-98.0); ABG PCO2 42 mmHg (32.0-48.0); ABG PH 7.358 (7.350-7.450); ABG TOTAL HEMOGLOBIN 10.5 G/dL (13.5-17.5); ALLEN TEST, BLOOD GAS Positive; O2 DEVICE,BLOOD GAS VENT (ROOM AIR); PEEP,BG 5 cm H2O; PO2, ARTERIAL BG 163.8 mmHg (83.0-108.0); SITE, BLOOD GAS RT RADIAL; SOURCE, BLOOD GAS ARTERIAL; TEMPERATURE, FAHRENHEIT, BG 98.5 FAHREN (96.0-98.6); VT, ABG 420 ml
[2024-07-13] MEDS ORDERED: AMPICILLIN SODIUM/SULBACTAM NA 1.5 GM in SODIUM CHLORIDE 0.9% 50 ML IV ONE (05:30)
[2024-07-13] MEDS: AMPICILLIN SODIUM/SULBACTAM NA 3 GM in SODIUM CHLORIDE 0.9% 100 ML IV SCH (05:51)
[2024-07-13 06:22] LABS: LACTIC ACID 2.3 mmol/L (0.4-2.0)
[2024-07-13] MEDS: PROPOFOL 1000 MG/ISO-OSM 100 ML IV PRN (07:32)
[2024-07-13] MEDS: FentaNYL CIT 1000MCG/0.9% NACL 100 ML IV PRN ×2 (09:08→16:43)
[2024-07-13 09:21] LABS: GLUCOMETER DEV NAME(LOC) ER.7; GLUCOSE,POINT OF CARE 122 MG/DL (70-110)
[2024-07-13] MEDS ORDERED: ASPI-1444 PO (12:59)
[2024-07-13] MEDS ORDERED: SEVE2.4P3 PO (12:59)
[2024-07-13] MEDS ORDERED: HYDR453.3 TP (12:59)
[2024-07-13] MEDS ORDERED: DUPI300P SQ (12:59)
[2024-07-13] MEDS: DEXAMETHASONE SOD PHOS 4 MG/ML VIAL IVP SCH (16:15)
[2024-07-13] MEDS ORDERED: EPINEPHrine 5 MG in DEXTROSE 5%-WATER 245 ML IV PRN (17:45)
[2024-07-13] MEDS: VANCOMYCIN 1GM/WATER(PEG/NADA) 200 ML IV ONE (18:19)
[2024-07-13] MEDS: NOREPINEPHRINE 8 MG/0.9 % NACL 250 ML IV PRN (18:21)
[2024-07-14] VITALS (18 sets, daily range): BP systolic 83–156; BP diastolic 55–86; PULSE 40–127; RESP 20–25; TEMP 97.5; O2SAT 97–100
[2024-07-14] MEDS: PROPOFOL 1000 MG/ISO-OSM 100 ML IV PRN (01:12)
[2024-07-14 03:07] LABS: BASOPHILS % (AUTO) 0.1 % (0.0-2.0); EOSINOPHILS % (AUTO) 0 % (1.0-6.0); HEMATOCRIT 29.4 % (41-53); HEMOGLOBIN 9.5 g/dL (13.5-17.5); LYMPHOCYTES # (AUTO) 0.8 K/uL (1.0-4.8); MEAN CORPUSCULAR HEMOGLOBIN 33.7 pg (26.0-34.0); MEAN CORPUSCULAR HGB CONC 32.5 G/dL (31.0-37.0); MEAN CORPUSCULAR VOLUME 104 fL (80-100); MONOCYTES # (AUTO) 0.3 K/uL (0.1-1.0); MONOCYTES % (AUTO) 2.4 % (2.0-9.0); NEUTROPHILS # (AUTO) 11.5 K/uL (1.8-7.7); PLATELET COUNT (AUTO) 331 K/uL (150-450); RED BLOOD CELL COUNT(AUTO) 2.84 MIL/uL (4.50-5.90); RED CELL DISTRIBUTION WIDTH 16.1 % (11.5-14.5); WHITE BLOOD COUNT (AUTO) 12.6 K/uL (4.5-11.0)
[2024-07-14 03:09] LABS: NEUTROPHILS % (AUTO) 91.5 % (40.0-70.0)
[2024-07-14 03:26] LABS: ALBUMIN 2.2 g/dL (3.4-5.0); BILIRUBIN,TOTAL 0.4 mg/dL (0.1-1.0); CALCIUM, TOTAL 8.4 mg/dL (8.8-10.5); CREATININE 11.68 mg/dL (0.60-1.30)
[2024-07-14 03:47] LABS: POTASSIUM 6.1 mmol/L (3.5-5.1)
[2024-07-14] MEDS: CALCIUM GLUCONATE 100 MG/ML 10 ML IVP ONE (03:56)
[2024-07-14] MEDS ORDERED: DEXAMETHASONE SOD PHOS 10 MG/ML VIAL IVP SCH (09:00)
[2024-07-14 09:10] LABS: GLUCOMETER DEV NAME(LOC) ER.7; GLUCOSE,POINT OF CARE 131 MG/DL (70-110)
[2024-07-14 09:10] LABS: GLUCOMETER DEV NAME(LOC) ER.7; GLUCOSE,POINT OF CARE 131 MG/DL (70-110)
[2024-07-14 09:53] LABS: CALCIUM, TOTAL 8.4 mg/dL (8.8-10.5); CREATININE 12.06 mg/dL (0.60-1.30)
[2024-07-14 09:56] LABS: POTASSIUM 6.5 mmol/L (3.5-5.1)
[2024-07-14 10:13] LABS: ABG BASE EXCESS -4.7 mmol/L (-2.0-3.0); ABG CARBOXYHEMOGLOBIN 0.4 % (0.5-1.5); ABG METHEMOGLOBIN 0.8 % (0.0-1.5); ABG OXYHEMOGLOBIN 97.8 % (94.0-98.0); ABG PCO2 36 mmHg (32.0-48.0); ABG PH 7.373 (7.350-7.450); ABG TOTAL HEMOGLOBIN 10.7 G/dL (13.5-17.5); PO2, ARTERIAL BG 127.5 mmHg (83.0-108.0); SOURCE, BLOOD GAS ARTERIAL
[2024-07-14 10:14] LABS: ABG A-A DIFF O2 189.9 mmHg (10-20.0); ALLEN TEST, BLOOD GAS Positive; O2 DEVICE,BLOOD GAS VENTILATOR (ROOM AIR); PEEP,BG 5 cm H2O; SITE, BLOOD GAS RT RADIAL; TEMPERATURE, FAHRENHEIT, BG 96.4 FAHREN (96.0-98.6); VT, ABG 420 ml
[2024-07-14] MEDS ORDERED: DOPamine 400MG/D5W[STANDARD] 250 ML IV PRN (10:15)
[2024-07-14] MEDS ORDERED: VANCOMYCIN 1GM/WATER(PEG/NADA) 200 ML IV PRN (10:15)
[2024-07-14] MEDS ORDERED: 0.9% SODIUM CHLORIDE 5 ML NEB SOLUTION NEB ONE (10:26)
[2024-07-14] MEDS: ALBUTEROL SULFATE 2.5 MG/0.5 ML NEB SOLUTION NEB ONE (10:34)
[2024-07-14] MEDS: DEXTROSE 50%-WATER 25 GM/50 ML SYRINGE IVP ONE (10:38)
[2024-07-14] MEDS: SODIUM BICARBONATE [ADULT] 8.4% 50 MEQ/50 ML SYRINGE IVP ONE (10:38)
[2024-07-14] MEDS: CALCIUM GLUCONATE 0.465 MEQ/ML 10 ML VIAL IV ONE (10:39)
[2024-07-14] MEDS: INSULIN REGULAR, HUMAN 100 UNITS/ML IVP ONE (10:41)
[2024-07-14 11:04] LABS: PROTHROMBIN TIME 10.8 SEC (9.4-11.6)
[2024-07-14 11:06] LABS: TROPONIN I-HIGH SENSITIVITY 67 ng/L (<76)
[2024-07-14] MEDS: DOPamine 800MG/D5W[DOUBLE] 250 ML IV PRN (11:27)
[2024-07-14 18:29] LABS: CALCIUM, TOTAL 8.4 mg/dL (8.8-10.5); CREATININE 5.92 mg/dL (0.60-1.30); POTASSIUM 3.9 mmol/L (3.5-5.1)
[2024-07-15] VITALS (8 sets, daily range): PULSE 43–106; RESP 20; O2SAT 97–100
[2024-07-15] MEDS ORDERED: GLYCOPYRROLATE 0.2 MG/ML VIAL ONE (06:24)
[2024-07-15 06:50] LABS: EOSINOPHILS % (AUTO) 0 % (1.0-6.0); HEMATOCRIT 30.7 % (41-53); HEMOGLOBIN 10.2 g/dL (13.5-17.5); LYMPHOCYTES # (AUTO) 0.6 K/uL (1.0-4.8); LYMPHOCYTES % (AUTO) 6.5 % (22.0-44.0); MEAN CORPUSCULAR HEMOGLOBIN 34.3 pg (26.0-34.0); MEAN CORPUSCULAR HGB CONC 33.1 G/dL (31.0-37.0); MEAN CORPUSCULAR VOLUME 104 fL (80-100); MONOCYTES # (AUTO) 0.4 K/uL (0.1-1.0); MONOCYTES % (AUTO) 4.6 % (2.0-9.0); NEUTROPHILS # (AUTO) 8.5 K/uL (1.8-7.7); PLATELET COUNT (AUTO) 304 K/uL (150-450); RED BLOOD CELL COUNT(AUTO) 2.96 MIL/uL (4.50-5.90); RED CELL DISTRIBUTION WIDTH 16.1 % (11.5-14.5); WHITE BLOOD COUNT (AUTO) 9.6 K/uL (4.5-11.0)
[2024-07-15 07:24] LABS: CALCIUM, TOTAL 8.1 mg/dL (8.8-10.5); CREATININE 7.44 mg/dL (0.60-1.30); POTASSIUM 5.3 mmol/L (3.5-5.1); VANCOMYCIN,RANDOM 13.4 mcg/mL (25.0-50.0)
[2024-07-15 07:25] LABS: NEUTROPHILS % (AUTO) 88.9 % (40.0-70.0)
[2024-07-15] MEDS ORDERED: NOREPINEPHRINE 8 MG/0.9 % NACL 250 ML IV ONE (07:29)
[2024-07-15] MEDS: NOREPINEPHRINE 8 MG/0.9 % NACL 250 ML IV PRN (07:42)
[2024-07-15] MEDS ORDERED: SODIUM CHLORIDE 0.9% 500 ML IV ONE (08:10)
[2024-07-15] MEDS: VANCOMYCIN 1GM/WATER(PEG/NADA) 200 ML IV ONE (08:26)
[2024-07-15] MEDS: HEPARIN SODIUM,PORCINE 100 UNITS/ML 5 ML VIAL IVP ONE (08:26)
[2024-07-15 08:47] LABS: TROPONIN I-HIGH SENSITIVITY 54 ng/L (<76)
[2024-07-15 10:11] LABS: RBC MORPHOLOGY COMMENT ABNORMAL RBC MORPH
[2024-07-15] MEDS ORDERED: EPINEPHrine 1:10,000 [1 MG/10 ML] SYRINGE ONE (11:25)
[2024-07-15] MEDS ORDERED: SODIUM CHLORIDE 0.9% 1,000 ML ONE (11:25)
[2024-07-15] MEDS ORDERED: NALOXONE HCL 0.4 MG/ML VIAL ONE (11:26)
[2024-07-15] MEDS ORDERED: SODIUM TETRADECYL SULFATE 3% 60 MG/2 ML VIAL IVP ONE (11:26)
[2024-07-15] MEDS ORDERED: SODIUM CHLORIDE 0.9% 100 ML ONE (11:26)
[2024-07-15] MEDS ORDERED: IOHEXOL 350 MG/ML 100 ML VIAL ONE (11:26)
[2024-07-15] MEDS ORDERED: DiphenhydrAMINE HCL 50 MG/ML VIAL ONE (11:26)
[2024-07-15] MEDS ORDERED: FLUMAZENIL 0.1 MG/ML 5 ML VIAL IVP ONE (11:26)
[2024-07-15] MEDS ORDERED: ATROPINE SULFATE 0.1 MG/ML 10 ML SYRINGE IVP ONE (11:26)
[2024-07-15 11:31] LABS: INFLUENZA A-RTPCR,COMBO NEGATIVE (NEGATIVE); INFLUENZA B-RTPCR,COMBO NEGATIVE (NEGATIVE); RESPIRATORY SYNCYTIAL VRS-PCR NEGATIVE (NEGATIVE); SARS COVID19 RTPCR, COMBO NEGATIVE (NEGATIVE)
[2024-07-15] MEDS: PANTOPRAZOLE SODIUM 80 MG in SODIUM CHLORIDE 0.9% 100 ML IV SCH (18:35)
[2024-07-16] VITALS (13 sets, daily range): BP systolic 110–168; BP diastolic 46–68; PULSE 54–67; RESP 20; TEMP 95.9–96.7; O2SAT 98–100
[2024-07-16 07:22] LABS: THYROID STIMULATING HORMONE 0.13 uIU/mL (0.36-3.74)
[2024-07-16 08:21] LABS: FREE T4 (FREE THYROXINE) 0.7 ng/dL (0.76-1.46)
[2024-07-16 09:11] LABS: GLUCOMETER DEV NAME(LOC) ER.7; GLUCOSE,POINT OF CARE 99 MG/DL (70-110)
[2024-07-16 09:11] LABS: GLUCOMETER DEV NAME(LOC) ER.7; GLUCOSE,POINT OF CARE 102 MG/DL (70-110)
[2024-07-16 11:10] LABS: GLUCOMETER DEV NAME(LOC) ER.7; GLUCOSE,POINT OF CARE 97 MG/DL (70-110)
[2024-07-17 13:07] LABS: ANTI-PROTEINASE 3 (PR3) <0.2 units (0.0-0.9)
[2024-07-17 14:06] LABS: ATYPICAL P-ANCA AB <1:20 titer (Neg:<1:20); CYTOPLASMIC (C-ANCA) AB, IGG <1:20 titer (Neg:<1:20)
== END 2024-07-16 11:56 | disposition short-term general hospital (02) ==
LOC: EMS 19:53 → EDH 23:55 → UNDOADMIN 23:55
DX: K20.80 Other esophagitis without bleeding (principal); J96.00 Acute respiratory failure, unspecified whether with hypoxia or hypercapnia; N18.6 End stage renal disease; D63.1 Anemia in chronic kidney disease; E11.22 Type 2 diabetes mellitus with diabetic chronic kidney disease; I25.10 Atherosclerotic heart disease of native coronary artery without angina pectoris; E87.5 Hyperkalemia; T18.9XXA Foreign body of alimentary tract, part unspecified, initial encounter; J98.8 Other specified respiratory disorders; I44.1 Atrioventricular block, second degree; I50.9 Heart failure, unspecified; Z79.02 Long term (current) use of antithrombotics/antiplatelets; I13.2 Hypertensive heart and chronic kidney disease with heart failure and with stage 5 chronic kidney disease, or end stage renal disease; D64.9 Anemia, unspecified; Z79.82 Long term (current) use of aspirin; Z79.899 Other long term (current) drug therapy; Z86.73 Personal history of transient ischemic attack (TIA), and cerebral infarction without residual deficits; Z90.49 Acquired absence of other specified parts of digestive tract; Z99.2 Dependence on renal dialysis; Z20.822 Contact with and (suspected) exposure to COVID-19
CPT/HCPCS: 80048 ×3; 82962 ×3; 84439; 84443; 85025 ×3; 36415 ×4; 88305; 70490 ×2; 99291; 83605; 87040; 82805 ×2; 36600 ×2; 71045; 71250; 96365; 96367 ×3; 96375 ×4; 80053; 83880; 84484 ×2; 85610; 85730; 87340; 93306; 94640; 93005; 96376; 83516 ×2; 80202; 87430; 70491; 86256; 96366 ×2; 96368; 0241U; J1100 ×5; J0171; J3010 ×4; J0360; J2470 ×4; J2704 ×4; J0295 ×4; J1644 ×2; J7060; J7050 ×4; J7040 ×2; J2370; J3490 ×4; J0610; J1265 ×2; J1815; Q9967; J1642; J7030; 90935; 94002; 94003; 99285; G0378; J0461; J1200; J2310; J7613